=== PATIENT | male | born 1970 | race Caucasian/White ===

== ENCOUNTER 2017-04-20 07:20 | Day surgery (SDC) | payer OTHER ==
[2017-04-20] MEDS ORDERED: DEXTROSE 5%-0.45% SALINE 1,000 ML IV SCH (09:00)
--- NOTE | 2017-04-20 09:11 | PDOC ---
History of Present Illness - General Chief Complaint: Pain, Acute Stated Complaint: HERNIA Time Seen by Provider: 04/20/17 08:30 History Source: Patient Exam Limitations: No Limitations - History of Present Illness Travel History: No Initial Comments: 04/20/17 09:16 47-year-old male presents to the emergency room for preop labs/clearance as per requested from Dr. Sagar Tom. Patient states was seen for surgical consultation on the fifth floor yesterday for his umbilical hernia and was told to return here this morning remaining nothing by mouth after midnight for surgery today. Patient states has had the hernia for possibly one year which has worsened in size, tenderness over the past year. Patient has no complaints of bowel pattern changes, urinary complaints, fever, chills or nausea. Patient is followed at the [facility] for HIV. Timing/Duration: reports: getting worse Quality: reports: moderate, burning, sharpness Abdominal Pain Onset Location: reports: periumbilical Pain Radiation: reports: no radiation Activities at Onset: reports: none Aggravating Factors: improves with: Movement Alleviating Factors: improves with: None Past History - Travel Traveled outside of the country in the last 30 days: No - Past Medical History Allergies/Adverse Reactions: Allergies Allergy/AdvReac Type Severity Reaction Status Date / Time No Known Allergies Allergy Verified 04/20/17 07:22 Home Medications: Ambulatory Orders Glecaprevir/Pibrentasvir [Mavyret 100-40 mg Tablet] 3 each PO DAILY #90 tablet 03/16/17 Testosterone [Androgel -] 5 gm TD DAILY #30 gel.packet MDD 1 03/16/17 Methadone [Dolophine -] 90 mg PO DAILY 04/20/17 COPD: No DVT: No Diabetes: No Liver Disease: Yes (HEP C) Other medical history: 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 - Suicide/Smoking/Psychosocial Hx Smoking History: Current every day smoker Information on smoking cessation initiated: Yes 'Breaking Loose' booklet given: 04/20/17 Hx Alcohol Use: No Drug/Substance Use Hx: No Substance Use Type: Heroin Patient Lives Alone: No Review of Systems - Review of Systems Able to Perform ROS?: Yes Constitutional: No: Symptoms Reported HEENTM: No: Symptoms Reported Respiratory: No: Symptoms reported Cardiac (ROS): No: Symptoms Reported ABD/GI: Yes: Other (hernia) : No: Symptoms Reported Musculoskeletal: No: Symptoms Reported Integumentary: Yes: Lumps (periumbilc) Neurological: No: Symptoms reported Hematologic/Lymphatic: No: Symptoms Reported *Physical Exam - Vital Signs Last Vital Signs Temp Pulse Resp BP Pulse Ox 98.0 F 63 18 122/75 100 04/20/17 07:22 04/20/17 07:22 04/20/17 07:22 04/20/17 07:22 04/20/17 07:22 - Physical Exam General Appearance: Yes: Nourished, Appropriately Dressed. No: Apparent Distress HEENT: negative: Pale Conjunctivae Respiratory/Chest: positive: Lungs Clear, Normal Breath Sounds. negative: Respiratory Distress, Accessory Muscle Use Cardiovascular: positive: Regular Rhythm, Regular Rate. negative: Murmur Gastrointestinal/Abdominal: positive: Normal Bowel Sounds, Soft, Hernia (noted tender 3 cm non-reducible hernia. skin color intact. surrounding skin intact) Integumentary: positive: Normal Color, Warm, Moist Neurologic: positive: Motor Strength 5/5 (ambulatory) ED Treatment Course - LABORATORY CBC & Chemistry Diagram: 04/20/17 09:00 04/20/17 09:00 - RADIOLOGY Radiology Studies Ordered: Category Date Time Status CHEST X-RAY PORTABLE* [RAD] Stat Radiology 04/20/17 08:57 Ordered Medical Decision Making - Medical Decision Making 04/20/17 09:14 Patient here for umbilical surgery to be performed by Dr. Sagar Tom. Patient has been nothing by mouth since last night and has no complaints except for worsening umbilical hernia specific with increasing tenderness and size over the past year. Patient is followed at the [facility] in his primary care physician at the Center is Dr. Shaw. Patient was seen in consultation yesterday evening on the fifth floor was told to come to the ER today for preop clearance. Preop labs ordered. IV fluids. at 75 ordered. Call placed to surgeon to update him that patient has arrived 04/20/17 10:38 Chest x-ray negative for acute pulmonary disease. Patient is to be admitted under Dr. Tom service. Laboratory Tests 04/20/17 04/20/17 04/20/17 08:57 09:00 09:00 WBC 9.8 Hgb 14.0 Hct 42.1 Plt Count 228 Neutrophils % 59.4 PT with INR 13.20 H INR 1.17 H Sodium Potassium Chloride Carbon Dioxide Anion Gap BUN Creatinine Random Glucose Magnesium Urine Blood Urine Nitrite Ur Leukocyte Esterase Blood Type AB POSITIVE Antibody Screen Negative 04/20/17 04/20/17 09:00 10:20 WBC Hgb Hct Plt Count Neutrophils % PT with INR INR Sodium 138 Potassium 4.4 Chloride 103 Carbon Dioxide 31 Anion Gap 4 L BUN 15 Creatinine 0.8 Random Glucose 100 Magnesium 2.1 Urine Blood Negative Urine Nitrite Negative Ur Leukocyte Esterase Negative Blood Type Antibody Screen *DC/Admit/Observation/Transfer Diagnosis at time of Disposition: Umbilical hernia Qualifiers: Obstruction and gangrene presence: without obstruction or gangrene Qualified Code(s): K42.9 - Umbilical hernia without obstruction or gangrene - Discharge Dispostion Admit: Yes - Referrals Referrals: Marcial Shaw NP [Primary Care Provider] - - Patient Instructions - Post Discharge Activity
[2017-04-20 09:24] LABS: BASO % 0.6 % (0-2.0); EOS % 2.2 % (0-4.5); HEMATOCRIT 42.1 % (35.4-49); LYMPH % 32.4 % (8-40); MCH 31.1 pg (25.7-33.7); MCHC 33.2 g/dl (32.0-35.9); MEAN CELL VOLUME 93.6 fl (80-96); MEAN PLT VOLUME 7.7 fl (7.5-11.1); MONO % 5.4 % (3.8-10.2); NEUT % 59.4 % (42.8-82.8); PLATELET COUNT 228 K/MM3 (134-434); WHITE BLOOD COUNT 9.8 K/mm3 (4.0-10.0)
[2017-04-20 09:36] LABS: INR 1.17 (0.82-1.09); PROTHROMBIN TIME (PATIENT) 13.2 SEC (9.98-11.88)
[2017-04-20 09:57] LABS: ALBUMIN 3.4 g/dl (3.4-5.0); ALK PHOS 64 U/L (45-117); ANION GAP 4 (8-16); BILIRUBIN,TOTAL 0.4 mg/dL (0.2-1.0); BLOOD UREA NITROGEN 15 mg/dL (7-18); CALCIUM 8.5 mg/dL (8.5-10.1); CHLORIDE 103 mmol/L (98-107); CO2 31 mmol/L (21-32); CREATININE 0.8 mg/dL (0.7-1.3); GLUCOSE,RANDOM 100 mg/dL (74-106); MAGNESIUM 2.1 mg/dL (1.8-2.4); POTASSIUM 4.4 mmol/L (3.5-5.1); SGOT/AST 19 U/L (15-37); SGPT/ALT 28 U/L (12-78); SODIUM 138 mmol/L (136-145); TOT PROT 7.3 g/dl (6.4-8.2)
[2017-04-20 10:26] LABS: URINE APPEARANCE CLEAR; URINE BILIRUBIN NEGATIVE (NEGATIVE); URINE BLOOD NEGATIVE (NEGATIVE); URINE COLOR YELLOW; URINE GLUCOSE (UA) NEGATIVE (NEGATIVE); URINE KETONE NEGATIVE (NEGATIVE); URINE LEUK ESTERASE NEGATIVE (NEGATIVE); URINE NITRITE NEGATIVE (NEGATIVE); URINE PROTEIN NEGATIVE (NEGATIVE); URINE UROBILINOGEN NEGATIVE mg/dL (0.2-1.0)
[2017-04-20 12:40] VITALS: BMI 41.8
--- NOTE | 2017-04-20 14:10 | EKG ---
Test Reason : Blood Pressure : / mmHG Vent. Rate : 051 BPM Atrial Rate : 051 BPM P-R Int : 156 ms QRS Dur : 086 ms QT Int : 472 ms P-R-T Axes : 051 069 056 degrees QTc Int : 435 ms SINUS BRADYCARDIA OTHERWISE NORMAL ECG NO PREVIOUS ECGS AVAILABLE Confirmed by MD Elizabeth, Blair ([id number]) on 04/20/2017 2:10:03 PM Referred By: Confirmed By:Blair Johnson MD
[2017-04-20] MEDS ORDERED: SUCCINYLCHOLINE CHLORIDE 200 MG/10 ML VIAL ONE (15:18)
[2017-04-20] MEDS ORDERED: PROPOFOL 20 ML ONE ×3 (15:18→16:52)
[2017-04-20] MEDS ORDERED: ceFAZolin SODIUM 1 GM VIAL IVPB ONE ×2 (15:38→16:20)
--- NOTE | 2017-04-20 15:44 | HP ---
Satellite [facility] - Chief Complaint Chief Complaint: Abdominal pain History of Present Illness: 47 male presents to the ER for abdominal pain. Noted to have an umbilical hernia. His pain is at the hernia site. The hernia is partially reducible and causing pain History Source: Patient Limitations to Obtaining History: No Limitations - Past Medical History Allergies/Adverse Reactions: Allergies Allergy/AdvReac Type Severity Reaction Status Date / Time No Known Allergies Allergy Verified 04/20/17 07:22 Hepatobiliary: Yes: Hepatitis C - Current Medications Current Medications: Home Medications Medication Instructions Recorded Glecaprevir/Pibrentasvir [Mavyret 3 each PO DAILY #90 tablet 03/16/17 100-40 mg Tablet] Testosterone [Androgel -] 5 gm TD DAILY #30 gel.packet MDD 1 03/16/17 Methadone [Dolophine -] 90 mg PO DAILY 04/20/17 Satellite Physical Exam - Physical Examination Vital Signs: Vital Signs Period Temp Pulse Resp BP Sys/Lindsay Pulse Ox Last 24 Hr 98.0 F 47-63 18-18 118-122/75-75 97-100 General Appearance: Calm Lung: Clear to auscultation Heart: Regular rate & rhythm Breasts: Soft, Other (Tender at partielly reducible umbilical hernia) Neurological: Alert, Oriented Satellite Impression/Plan - Impression/Plan Impression: Invcarcerated umbilical hernia with pain Operative Procedure: Laparoscopic possible open umbilical hernia repair with possible mesh Date to be Performed: 04/20/17
[2017-04-20] MEDS ORDERED: ROCURONIUM BROMIDE 50 MG/5 ML VIAL ONE (15:58)
[2017-04-20] MEDS ORDERED: DEXAMETHASONE SOD PHOSPHATE 4 MG/1 ML VIAL ONE (16:05)
[2017-04-20] MEDS ORDERED: ceFAZolin SODIUM 1 GM VIAL ONE (16:05)
[2017-04-20] MEDS ORDERED: oxyCODONE HCL 5 MG TABLET PO PRN (16:29)
[2017-04-20] MEDS ORDERED: ONDANSETRON 4 MG/2 ML VIAL IVPUSH PRN (16:29)
[2017-04-20] MEDS ORDERED: LACTATED RINGERS SOLUTION 1,000 ML IV SCH (16:30)
--- NOTE | 2017-04-20 16:35 | OP ---
Operative Note - Note: Operative Date: 04/20/17 Pre-Operative Diagnosis: Incarcertaed umbilical hernia Operation: Diagnostic laparoscopy. Laparoscopic lysis of adhesions. Laparoscopic umbilical hernia repair with mesh Findings: Incarcerated umbilical hernia Intraabdominal adhesions Post-Operative Diagnosis: Same as Pre-op Surgeon: Sagar Tom Top Frame Maker: Dahiana Burton Anesthesia: General Estimated Blood Loss (mls): 5 Operative Report Dictated: Yes
[2017-04-20] MEDS ORDERED: NEOSTIGMINE METHYLSULFATE 0.5 MG/ML - 10 ML MDV ONE ×2 (16:37→16:51)
[2017-04-20] MEDS ORDERED: GLYCOPYRROLATE 0.2 MG/1 ML VIAL ONE (16:37)
[2017-04-20] MEDS ORDERED: BUPIVACAINE HCL/PF 0.5% (5MG/ML) 10 ML VIAL IJ ONE (17:05)
--- NOTE | 2017-04-20 19:35 | OP ---
DATE OF OPERATION: 04/20/2017 SURGEON: Sagar Tom M.D. [employer]PER[employer]: Mary Juarez PREOPERATIVE DIAGNOSIS: Incarcerated umbilical hernia. POSTOPERATIVE DIAGNOSIS: 1. Incarcerated umbilical hernia. 2. Intraabdominal adhesions. PROCEDURE: 1. Diagnostic laparoscopy. 2. Laparoscopic lysis of adhesions. 3. Laparoscopic incarcerated umbilical hernia repair with mesh. Mesh is 12-cm Symbotex mesh. SPECIMENS: None. DRAINS: None. ANESTHESIA: GT. REASON FOR THE PROCEDURE: This is a 47-year-old gentleman who presents to the ER for abdominal pain at an umbilical hernia. He was noted to have a partially reducible umbilical hernia with pain and partial incarceration. Because of this , he was consented for laparoscopic, possible open repair of the incarcerated umbilical hernia. Risks and benefits of the procedure were explained, these included bleeding, infection, recurrence of the hernia, IL, DVT, PE, injury to surrounding abdominal structures, and as some of the complications. He understood and signed informed consent. DESCRIPTION OF PROCEDURE: Patient placed supine on operating room table. He underwent general endotracheal intubation. The abdomen was prepped and draped in sterile fashion. Timeout was performed, and incision was made in the left upper quadrant. Veress needle was inserted. Pneumoperitoneum was established. Subsequently Veress needle was removed, and a 5-mm Optiview trocar was placed under direct visualization with laparoscope. A 12-mm trocar was then placed in the left lateral abdominal wall, and a 5-mm trocar placed in the left lower quadrant. The patient was placed in slight right lateral decubitus position. The abdomen was inspected. Adhesions were noted, these were carefully taken down using Ligasure device. Hemostasis was noted, no injury was noted. Small umbilical hernia defect was noted, this was carefully dissected. Once all contents were removed from the umbilical hernia, and the sac was freed, a 12-cm Symbotex mesh was chosen, irrigated, and inserted into the abdominal cavity. This was tacked using absorbable tacks circumferentially. The mesh was noted to be in good position, hemostasis was noted. The 12-mm trocar was then removed, and the fascia closed using a 0 Vicryl suture with a Stanley Jacob device. Pneumoperitoneum was desufflated, all trocars were removed, all skin incisions were closed using 4-0 Biosyn. Sterile dressings were applied. The patient tolerated the procedure well, transferred to recovery room in stable condition. Jared [id number] MTDD
[2017-04-20 19:58] VITALS: BP 107/55; PULSE 62; TEMP 98.9
--- NOTE | 2017-04-20 21:39 | SURG ---
Surgery Freight Car Loader Note Freight Car Loader: Dahiana Burton PA-C Date of Service: 04/20/17 Diagnosis: Incarcertaed umbilical hernia Procedure: Diagnostic laparoscopy. Laparoscopic lysis of adhesions. Laparoscopic umbilical hernia repair with mesh I was present for the entirety of the operative procedure. For further detail, please refer to operative report. Visit type - Case Type Case Type: ED Admission - Emergency Emergency Visit: Yes Care time: The patient presented to the Emergency Department on the above date and was hospitalized for further evaluation of their emergent condition. - New patient This patient is new to me today: Yes Date on this admission: 04/20/17
== END 2017-04-20 21:55 | disposition home or self-care (01) ==
LOC: JER 07:20 → JASUSAT 10:38 → J8W 15:21 → JASUSAT 21:55
PROVIDERS: ATTEND Surgery
PROC: 0WUF4JZ Supplement Abdominal Wall with Synthetic Substitute, Percutaneous Endoscopic Approach (ICD-10-PCS; principal; 2017-04-20 16:00)
DX: K42.0 Umbilical hernia with obstruction, without gangrene (principal)
CPT/HCPCS: 36415; 71045-TC-FY; 80053; 81003; 83735; 85025; 85610; 86850; 86900; 86901; 93005; 93010; 94760; 99282-25

== ENCOUNTER 2021-07-26 12:19 | Emergency (ER) | payer OTHER ==
[2021-07-26 12:32] VITALS: TEMP 98.1; BMI 42.5
[2021-07-26] MEDS ORDERED: SODIUM CHLORIDE 0.9% 1000 ML INFUS.BAG IV ONE (12:40)
[2021-07-26 13:06] LABS: BASO % 0.8 % (0-2.0); EOS % 1.1 % (0-4.5); HEMATOCRIT 38.7 % (35.4-49); HEMOGLOBIN 13.4 GM/dL (11.7-16.9); LYMPH % 19.7 % (8-40); MCH 31.1 pg (25.7-33.7); MCHC 34.6 g/dl (32.0-35.9); MEAN CELL VOLUME 89.9 fl (80-96); MEAN PLT VOLUME 7.2 fl (7.5-11.1); MONO % 5.8 % (3.8-10.2); NEUT % 72.6 % (42.8-82.8); PLATELET COUNT 257 10^3/uL (134-434); RBC 4.31 M/mm3 (4.00-5.60); WHITE BLOOD COUNT 8.9 K/mm3 (4.0-10.0)
[2021-07-26 13:28] LABS: CALCIUM 8.9 mg/dL (8.5-10.1)
[2021-07-26 13:29] LABS: ALBUMIN 3.6 g/dl (3.4-5.0)
[2021-07-26 13:34] LABS: BILIRUBIN,TOTAL 0.6 mg/dL (0.2-1); TOT PROT 7.2 g/dl (6.4-8.2)
[2021-07-26 15:17] LABS: BLOOD UREA NITROGEN 20.2 mg/dL (7-18)
[2021-07-26 16:39] VITALS: BP 117/68; PULSE 55
== END 2021-07-26 18:12 | disposition home or self-care (01) ==
LOC: JER 12:19
DX: R06.02 Shortness of breath (principal)
CPT/HCPCS: 36415; 71045-TC-FY; 80053; 84484; 85025; 93005; 93010; 99284-25

== ENCOUNTER 2022-04-27 05:41 | Emergency (ER) | payer OTHER ==
[2022-04-27 05:54] VITALS: TEMP 98.1; BMI 43.8
[2022-04-27] MEDS ORDERED: FAMOTIDINE 20 MG/50 ML IVPB 20 MG/50 ML MG IVPB ONE ×2 (06:30→07:00)
[2022-04-27] MEDS ORDERED: ONDANSETRON 4 MG/2 ML VIAL IVPUSH ONE (06:30)
[2022-04-27] MEDS ORDERED: ACETAMINOPHEN 1000 MG/100 ML BAG IVPB ONE (06:30)
[2022-04-27] MEDS ORDERED: ACETAMINOPHEN INJECTION 100 ML IVPB ONE (06:59)
[2022-04-27] MEDS ORDERED: ONDANSETRON 4 MG/2 ML VIAL ONE (07:00)
[2022-04-27 07:20] LABS: BASO % 0.8 % (0-2.0); EOS % 0.9 % (0-4.5); HEMATOCRIT 42.7 % (35.4-49); HEMOGLOBIN 14.1 GM/dL (11.7-16.9); LYMPH % 19.7 % (8-40); MCH 30.3 pg (25.7-33.7); MEAN CELL VOLUME 91.8 fl (80-96); MEAN PLT VOLUME 7.1 fl (7.5-11.1); MONO % 5.7 % (3.8-10.2); NEUT % 72.9 % (42.8-82.8); PLATELET COUNT 287 10^3/uL (134-434); RBC 4.65 M/mm3 (4.00-5.60); RDW 13.6 % (11.9-15.9); WHITE BLOOD COUNT 11.7 K/mm3 (4.0-10.0)
[2022-04-27 07:26] LABS: INR 1.12 (0.83-1.09)
[2022-04-27 07:39] LABS: ALBUMIN 3.3 g/dl (3.4-5.0); CALCIUM 8.7 mg/dL (8.5-10.1)
[2022-04-27 07:42] LABS: CREATININE 0.9 mg/dL (0.55-1.3)
[2022-04-27 07:44] LABS: BILIRUBIN,TOTAL 0.4 mg/dL (0.2-1); TOT PROT 7.1 g/dl (6.4-8.2)
[2022-04-27] MEDS ORDERED: ALBUTEROL SO4 2.5/IPRATROPIUM 0.5 INH SOL 3 ML VIAL.NEB. NEB ONE ×2 (08:07→08:24)
[2022-04-27 10:41] VITALS: BP 155/78; PULSE 78; RESP 18
== END 2022-04-27 10:25 | disposition home or self-care (01) ==
LOC: JER 05:41
PROC: 3E0F7GC Introduction of Other Therapeutic Substance into Respiratory Tract, Via Natural or Artificial Opening (ICD-10-PCS; principal; 2022-04-27)
PROC: 3E0333Z Introduction of Anti-inflammatory into Peripheral Vein, Percutaneous Approach (ICD-10-PCS; 2022-04-27)
PROC: 3E033GC Introduction of Other Therapeutic Substance into Peripheral Vein, Percutaneous Approach (ICD-10-PCS; 2022-04-27)
PROC: 3E033GC Introduction of Other Therapeutic Substance into Peripheral Vein, Percutaneous Approach (ICD-10-PCS; 2022-04-27)
DX: R07.89 Other chest pain (principal)
CPT/HCPCS: 36415; 71046-TC-FY; 80053; 84484; 85025; 85610; 93005; 93010; 99285-25

== ENCOUNTER 2022-07-03 13:45 | Emergency (ER) | payer OTHER ==
[2022-07-03 13:53] VITALS: BP 140/66; PULSE 99; RESP 18; TEMP 98.3; BMI 42.5
[2022-07-03] MEDS ORDERED: MAG HYDROX/AL HYDROX/SIMETH 30 ML UNIT-DOSE CUP PO ONE (14:07)
[2022-07-03] MEDS ORDERED: LIDOCAINE VISCOUS 2% ORAL/TOP 15 ML UNIT-DOSE CUP MM ONE (14:07)
[2022-07-03] MEDS ORDERED: FAMOTIDINE 20 MG TABLET PO ONE (14:07)
[2022-07-03] MEDS ORDERED: FAMOTIDINE 20 MG TABLET ONE (14:48)
[2022-07-03] MEDS ORDERED: MAG HYDROX/AL HYDROX/SIMETH 30 ML UNIT-DOSE CUP ONE (14:49)
[2022-07-03] MEDS ORDERED: LIDOCAINE VISCOUS 2% ORAL/TOP 15 ML UNIT-DOSE CUP ONE (14:49)
[2022-07-03 18:05] LABS: BASO % 0.3 % (0-2.0); EOS % 0.3 % (0-4.5); HEMATOCRIT 39.8 % (35.4-49); HEMOGLOBIN 13.4 GM/dL (11.7-16.9); LYMPH % 18.3 % (8-40); MCH 30.4 pg (25.7-33.7); MCHC 33.7 g/dl (32.0-35.9); MEAN CELL VOLUME 90.3 fl (80-96); MEAN PLT VOLUME 7.7 fl (7.5-11.1); MONO % 3.8 % (3.8-10.2); NEUT % 77.3 % (42.8-82.8); PLATELET COUNT 300 10^3/uL (134-434); RBC 4.41 M/mm3 (4.00-5.60); RDW 13.6 % (11.9-15.9); WHITE BLOOD COUNT 14.4 K/mm3 (4.0-10.0)
[2022-07-03 18:25] LABS: ALBUMIN 3.4 g/dl (3.4-5.0); CALCIUM 9.1 mg/dL (8.5-10.1)
[2022-07-03 18:26] LABS: BLOOD UREA NITROGEN 12.9 mg/dL (7-18)
[2022-07-03 18:28] LABS: CREATININE 0.9 mg/dL (0.55-1.3)
[2022-07-03 18:30] LABS: BILIRUBIN,TOTAL 0.5 mg/dL (0.2-1); TOT PROT 7.6 g/dl (6.4-8.2)
== END 2022-07-03 18:51 | disposition home or self-care (01) ==
LOC: JER 13:45
DX: R10.13 Epigastric pain (principal)
CPT/HCPCS: 36415; 76705-TC; 80053; 83690; 85025; 99284-25

== ENCOUNTER 2023-03-16 14:06 | Emergency (ER) | payer OTHER ==
[2023-03-16 14:29] VITALS: BP 157/87; RESP 17; TEMP 98.2; BMI 47.0
[2023-03-16 16:29] LABS: BASO % 0.8 % (0-2.0); EOS % 0.2 % (0-4.5); HEMATOCRIT 43.8 % (35.4-49); HEMOGLOBIN 14.2 GM/dL (11.7-16.9); LYMPH % 14.2 % (8-40); MCH 29.3 pg (25.7-33.7); MCHC 32.5 g/dl (32.0-35.9); MEAN CELL VOLUME 90.1 fl (80-96); MEAN PLT VOLUME 7.4 fl (7.5-11.1); MONO % 4.5 % (3.8-10.2); NEUT % 80.3 % (42.8-82.8); PLATELET COUNT 346 10^3/uL (134-434); RBC 4.86 M/mm3 (4.00-5.60); RDW 13.6 % (11.9-15.9); WHITE BLOOD COUNT 15.8 K/mm3 (4.0-10.0)
[2023-03-16 16:43] LABS: EPI CELLS 6 /uL (0-25.1); HYALINE CASTS 2 /uL (0-3.1); URINE APPEARANCE CLEAR; URINE BACTERIA 1 /uL (0-1359); URINE BILIRUBIN 1+ (NEGATIVE); URINE COLOR DK YELLOW; URINE GLUCOSE (UA) NEGATIVE (NEGATIVE); URINE KETONE NEGATIVE (NEGATIVE); URINE LEUK ESTERASE 1+ (NEGATIVE); URINE NITRITE NEGATIVE (NEGATIVE); URINE PROTEIN TRACE (NEGATIVE); URINE RBC 236 /uL (0-23.9); URINE WBC 56 /uL (0-25.8)
[2023-03-16 16:57] LABS: POTASSIUM 4.2 mmol/L (3.5-5.1)
[2023-03-16 16:59] LABS: CALCIUM 8.9 mg/dL (8.5-10.1)
[2023-03-16 17:00] LABS: ALBUMIN 3.3 g/dl (3.4-5.0); BLOOD UREA NITROGEN 14.3 mg/dL (7-18)
[2023-03-16 17:03] LABS: CREATININE 0.8 mg/dL (0.55-1.3)
[2023-03-16 17:05] LABS: BILIRUBIN,TOTAL 0.5 mg/dL (0.2-1); TOT PROT 7.3 g/dl (6.4-8.2)
[2023-03-16] MEDS ORDERED: ACETAMINOPHEN 1000 MG/100 ML BAG IVPB ONE (17:25)
[2023-03-16] MEDS ORDERED: ACETAMINOPHEN INJECTION 100 ML IVPB ONE (17:36)
[2023-03-16 18:15] VITALS: PULSE 76
== END 2023-03-16 18:35 | disposition home or self-care (01) ==
LOC: JER 14:06
PROC: 3E033NZ Introduction of Analgesics, Hypnotics, Sedatives into Peripheral Vein, Percutaneous Approach (ICD-10-PCS; principal; 2023-03-16)
DX: R07.9 Chest pain, unspecified (principal); R53.1 Weakness; R00.0 Tachycardia, unspecified; Z20.822 Contact with and (suspected) exposure to COVID-19
CPT/HCPCS: 0241U-QW; 36415; 71046-TC-FY; 80053; 81003; 84484; 85025; 87086; 93005; 93010; 96374; 99285-25

== ENCOUNTER 2023-06-11 08:39 | Emergency (ER) | payer OTHER ==
[2023-06-11 08:50] VITALS: RESP 18; BMI 47.0
[2023-06-11] MEDS ORDERED: ACETAMINOPHEN INJECTION 100 ML IVPB ONE (09:28)
[2023-06-11] MEDS: ACETAMINOPHEN 1000 MG/100 ML BAG IVPB ONE (09:40)
[2023-06-11 10:03] LABS: BASO % 0.3 % (0-2.0); EOS % 0.6 % (0-4.5); HEMATOCRIT 42.6 % (35.4-49); HEMOGLOBIN 13.8 GM/dL (11.7-16.9); LYMPH % 18.1 % (8-40); MCH 29.4 pg (25.7-33.7); MCHC 32.4 g/dl (32.0-35.9); MEAN CELL VOLUME 90.7 fl (80-96); MEAN PLT VOLUME 7.2 fl (7.5-11.1); MONO % 5.2 % (3.8-10.2); NEUT % 75.8 % (42.8-82.8); PLATELET COUNT 323 10^3/uL (134-434); RBC 4.69 M/mm3 (4.00-5.60); RDW 13.2 % (11.9-15.9); WHITE BLOOD COUNT 12.7 K/mm3 (4.0-10.0)
[2023-06-11 10:04] LABS: INR 1.16 (0.83-1.09); PROTHROMBIN TIME (PATIENT) 13.4 SEC (9.7-13.0)
[2023-06-11 10:07] LABS: ACTIVATED PTT 32.2 SECONDS (25.2-36.5)
[2023-06-11 11:57] LABS: ALBUMIN 3.1 g/dl (3.4-5.0); BLOOD UREA NITROGEN 13.2 mg/dL (7-18); CALCIUM 8.6 mg/dL (8.5-10.1)
[2023-06-11 12:00] LABS: CREATININE 0.8 mg/dL (0.55-1.3)
[2023-06-11 12:02] LABS: BILIRUBIN,TOTAL 0.6 mg/dL (0.2-1)
[2023-06-11 14:21] VITALS: BP 141/67; PULSE 59; TEMP 97.9
== END 2023-06-11 14:57 | disposition home or self-care (01) ==
LOC: JER 08:39
PROC: 3E033NZ Introduction of Analgesics, Hypnotics, Sedatives into Peripheral Vein, Percutaneous Approach (ICD-10-PCS; principal; 2023-06-11)
DX: R07.9 Chest pain, unspecified (principal); R20.0 Anesthesia of skin; R06.02 Shortness of breath; R20.2 Paresthesia of skin; M79.602 Pain in left arm
CPT/HCPCS: 36415; 71046-TC-FY; 71275-TC; 74174-TC; 80053; 84484; 85025; 85610; 85730; 93005; 93010; 93970-TC; 99285-25; J0131; Q9967